=== PATIENT | male | born 1965 | race Caucasian/White ===

== ENCOUNTER 2017-03-12 11:01 | Day surgery (SDC) | payer BC ==
[~2017-03-12] VITALS: Ht 177.8 cm; Wt 84.8 kg
[2017-03-12] MEDS ORDERED: LR 1,000 ML IV SCH (13:16)
[2017-03-12] MEDS ORDERED: HYDROmorphone 2 MG/ML VIAL IVP PRN ×2 (13:30)
[2017-03-12] MEDS ORDERED: KETOROLAC TROMETHAMINE 30 MG VIAL IVP PRN (13:30)
[2017-03-12] MEDS ORDERED: HYDROmorphone 1 MG INJ. 1 MG/ML AMPUL IVP PRN ×2 (13:30→14:00)
[2017-03-12] MEDS ORDERED: ONDANSETRON HCL 4 MG/2 ML VIAL IVP PRN (13:30)
[2017-03-12] MEDS ORDERED: MEPERIDINE HCL/PF 25 MG/ML DISP.SYRIN IVP PRN ×2 (13:30)
[2017-03-12] MEDS ORDERED: D5/0.45 NS 1,000 ML IV SCH (13:48)
[2017-03-12] MEDS ORDERED: HYDROcodone/ACETAMIN 5-325 MG TAB (NORCO/ VICODIN) PO PRN ×2 (14:00)
[2017-03-12 15:13] VITALS: BP_SYST 141
== END 2017-03-12 15:25 | disposition home or self-care (01) ==
LOC: SDS 11:01 → SMU 11:02 → SDS 15:25
PROVIDERS: ATTEND Colon & Rectal Surgery
DX: C43.59 Malignant melanoma of other part of trunk (principal)
CPT/HCPCS: 11606; 12034; 88305; J7120

== ENCOUNTER 2022-08-19 23:08 | Emergency (ER) | payer BC, OTHER ==
[~2022-08-19] VITALS: Ht 177.8 cm; Wt 81.6 kg
[2022-08-19 23:20] VITALS: BP_SYST 158
--- NOTE | 2022-08-19 23:23 | NUR ---
Patient to ER bed 07 to gown for evaluation. Side rails up. Report given to ABIGAIL GUEVARA.
[2022-08-20] MEDS ORDERED: IBUPROFEN 100 MG/5 ML UDC PO ONE
[2022-08-20] MEDS ORDERED: DEXAMETHASONE SOD PHOSPHATE 10 MG/ML VIAL IM ONE
--- NOTE | 2022-08-20 01:50 | NUR ---
RT present at bedside at this time.
[2022-08-20] MEDS ORDERED: RACEPINEPHRINE HCL 0.5 ML VIAL.NEB INH ONE (02:00)
[2022-08-20] MEDS ORDERED: DEC4 PO (02:15)
[2022-08-20] MEDS ORDERED: IBUP100O22 PO (02:21)
[2022-08-20 02:48] VITALS: BP_SYST 146
--- NOTE | 2022-08-20 02:48 | NUR ---
Patient given written and verbal discharge instructions and verbalizes understanding. ER MD discussed with patient the results and treatment provided. Patient in stable condition. ID arm band removed. Rx of dexamethasone & ibuprofen given. Patient educated on pain management and to follow up with PMD. Opportunity for questions provided and answered.
== END 2022-08-20 02:48 | disposition home or self-care (01) ==
LOC: SED 23:08
DX: P24.31 Neonatal aspiration of milk and regurgitated food with respiratory symptoms (principal); J02.9 Acute pharyngitis, unspecified; R06.02 Shortness of breath; Z79.899 Other long term (current) drug therapy
CPT/HCPCS: 99284; 71045; 70360; 94640; 96372; J1100